=== PATIENT | female | born 1965 | race Caucasian/White ===

== ENCOUNTER → 2016-07-24 | Outpatient (CLI) | payer BC | LOC: MC.RAD 09:20 | DX: Z12.31 Encounter for screening mammogram for malignant neoplasm of breast (principal) ==

== ENCOUNTER → 2017-03-06 | Outpatient (CLI) | payer BC | LOC: COL.RAD 13:46 | DX: G43.909 Migraine, unspecified, not intractable, without status migrainosus (principal); M47.812 Spondylosis without myelopathy or radiculopathy, cervical region; M50.20 Other cervical disc displacement, unspecified cervical region; G95.0 Syringomyelia and syringobulbia | CPT/HCPCS: A9585 ==

== ENCOUNTER → 2017-08-07 | Outpatient (CLI) | payer BC | LOC: MC.RAD 13:06 | DX: Z12.31 Encounter for screening mammogram for malignant neoplasm of breast (principal) ==

== ENCOUNTER → 2019-04-30 | Outpatient (CLI) | payer BC | LOC: COL.RAD 13:59 | DX: M47.812 Spondylosis without myelopathy or radiculopathy, cervical region (principal); E23.7 Disorder of pituitary gland, unspecified; M50.00 Cervical disc disorder with myelopathy, unspecified cervical region ==